=== PATIENT | male | born 1960 | race Caucasian/White ===

== ENCOUNTER 2018-02-03 17:01 | Emergency (ER) | payer OTHER ==
[2018-02-03 18:10] VITALS: BP 132/77
--- NOTE | 2018-02-03 19:21 | UC ---
Lower Extremity/Ankle HPI - HPI Summary HPI Summary: 57-year-old man comes in with complaint of right lateral ankle pain for the last couple of days. He reports this is the way his gout flares. He is traveling and in between medical providers and has run out of his colchicine. No fevers or chills no trauma. He says the gout flares concurrent ankle or the great toe or other sites. - History of Current Complaint Chief Complaint: UCLowerExtremity Stated Complaint: MEDICATION REFILL Time Seen by Provider: 02/03/18 19:02 Pain Intensity: 4 - Allergies/Home Medications Allergies/Adverse Reactions: Allergies Allergy/AdvReac Type Severity Reaction Status Date / Time Penicillins Allergy Hives Verified 02/03/18 18:10 Home Medications: Home Medications Ibuprofen TAB* [Advil TAB*] 400 mg PO Q6H PRN 02/03/18 [History Confirmed ] PMH/Surg Hx/FS Hx/Imm Hx Previously Healthy: No - GOUT - Surgical History Surgical History: Yes Surgery Procedure, Year, and Place: R ankle fx repair - Family History Known Family History: Positive: Unknown - Social History Alcohol Use: heavy drinker but none in past 2 months Substance Use Type: None Smoking Status (MU): Never Smoked Tobacco Review of Systems Constitutional: Negative Skin: Negative Eyes: Negative ENT: Negative Respiratory: Negative Cardiovascular: Negative Gastrointestinal: Negative Motor: Negative Neurovascular: Negative Musculoskeletal: Other: - See history of present illness Neurological: Negative Psychological: Negative Is Patient Immunocompromised?: No All Other Systems Reviewed And Are Negative: Yes Physical Exam Triage Information Reviewed: Yes Appearance: Well-Appearing, No Pain Distress, Well-Nourished Vital Signs: Initial Vital Signs Temp 98.1 F 02/03/18 18:04 Pulse 72 02/03/18 18:04 Resp 16 02/03/18 18:04 BP 132/77 02/03/18 18:04 Pulse Ox 99 02/03/18 18:04 Vital Signs Reviewed: Yes Eye Exam: Normal Neck exam: Normal Neck: Positive: Supple Respiratory: Positive: No respiratory distress Musculoskeletal: Positive: Other: - Mild tenderness to palpation lateral aspect of the right ankle. There is no erythema or CALOR. Neurological Exam: Normal Psychological Exam: Normal Skin Exam: Normal Lower Extremity Course/Dx - Course Course Of Treatment: The patient is in between primary medical doctors and is traveling here from his home in [place]. He has used colchicine in the past to treat his gouty flares. He is out of colchicine at this time. He's tried allopurinol the past without success boardlike tried again. He also is interested in alternative medicine for acute gouty flares. I prescribed colchicine and indomethacin which she can use either one of those for acute gouty flares. When he is not in a flare tried allopurinol any. They'll Purinol if he is an acute flare. PRIMARY care doctor recheck here sooner if worse. - Differential Dx/Diagnosis Provider Diagnoses: GOUT Discharge - Sign-Out/Discharge Documenting (check all that apply): Patient Departure All imaging exams completed and their final reports reviewed: No Studies - Discharge Plan Condition: Stable Disposition: HOME Prescriptions: Allopurinol 100 mg PO DAILY #60 tablet Colchicine [Mitigare] 0.6 mg PO QID PRN #30 capsule PRN Reason: Pain Indomethacin 50 mg PO TID PRN #21 capsule PRN Reason: Pain Patient Education Materials: Gout (ED) [place]: [facility] [place] [facility] [Outside] Additional Instructions: FOLLOW UP WITH YOUR DOCTOR. USE THE COLCHICINE OR INDOMETHACIN FOR ACUTE GOUT FLARES. USE THE ALLOPURINOL TO HELP AVOID GOUT ATTACKS. GET RECHECKED FOR ANY WORSENING OF YOUR CONDITION OR QUESTIONS OR CONCERNS. - Billing Disposition and Condition Condition: STABLE Disposition: Home - Attestation Statements Document Initiated by Richie: No
== END 2018-02-03 19:28 | disposition home or self-care (01) ==
LOC: UCCORT 17:01
DX: M10.9 Gout, unspecified (principal); Z88.0 Allergy status to penicillin; Z72.89 Other problems related to lifestyle; Z76.0 Encounter for issue of repeat prescription
CPT/HCPCS: 99202; G0463